=== PATIENT | male | born 1980 | race African-American/Black ===

== ENCOUNTER 2016-11-24 09:15 | Emergency (ER) | payer BC ==
[2016-11-24 09:21] VITALS: BP 110/70; PULSE 83; TEMP 98.5; BMI 30.4
--- NOTE | 2016-11-24 10:24 | PDOC ---
History of Present Illness - General Chief Complaint: Injury Stated Complaint: LEFT SIDE PAIN Time Seen by Provider: 11/24/16 10:19 History Source: Patient Exam Limitations: No Limitations - History of Present Illness Initial Comments: CHIEF COMPLAINT: 36 y/o afebrile male with no significant PMH c/o left rib pain. HISTORY OF PRESENT ILLNESS: The patient states he was wrestling with his brother last night and afterwards started feeling left anterior rib pain that is worse with movement and deep breaths. He states he feels something "moving" in his ribs. He has not taken anything for the pain. He denies trauma to the area, fall, f/c, n/v/d, cough, hemoptysis, SOB. Vital signs on arrival are within normal limits. REVIEW OF SYSTEMS: GENERAL/CONSTITUTIONAL: No fever/chills. No weakness. No weight change. HEAD, EYES, EARS, NOSE AND THROAT: No change in vision. No ear pain or discharge. No sore throat. CARDIOVASCULAR: +rib pain. No chest pain or shortness of breath. RESPIRATORY: No cough, wheezing, or hemoptysis. GASTROINTESTINAL: No abd pain, nausea, vomiting, diarrhea. GENITOURINARY: No dysuria, frequency, or change in urination. MUSCULOSKELETAL: No joint or muscle swelling or pain. No neck or back pain. SKIN: No rash or easy bruising. NEUROLOGIC: No headache, vertigo, loss of consciousness, or loss of sensation. PHYSICAL EXAM: GENERAL: The patient is awake, alert, and fully oriented, in no acute distress. He is well appearing, speaks in full sentences, but in discomfort with movement of upper body. HEAD: Normal with no signs of trauma. ENT: Pupils equal, round and reactive to light, extraocular movements intact, sclera anicteric, conjunctiva clear. Neck supple. LUNGS: Clear to auscultation bilaterally. Normal excursion. No respiratory distress or use of accessory muscles. CV: RRR, S1/S2, no MRG. Cap refill < 2 sec. CHEST WALL: Pain reproduced with palpation of ribs T7-T9, midclavicular line. No flail chest. No crepitus or obvious deformities. No ecchymosis or bruising to affected area. ABDOMEN: Soft, non-distended, non-tender even to deep palpation, no hepatomegaly or splenomegaly, no masses. EXTREMITIES: Normal range of motion, no edema. NEUROLOGICAL: Normal speech, normal gait. CN II-XII grossly intact. PSYCH: Normal mood, normal affect. SKIN: Warm, dry, normal turgor, no rashes or lesions noted. Past History - Past Medical History Allergies/Adverse Reactions: Allergies Allergy/AdvReac Type Severity Reaction Status Date / Time No Known Allergies Allergy Verified 11/24/16 09:16 Home Medications: Ambulatory Orders Hydrocodone/Ibuprofen [Vicoprofen 200-7.5 mg Tab] 1 tab PO Q6H #20 tablet Asthma: Yes - Psycho/Social/Smoking Cessation Hx Anxiety: No Suicidal Ideation: No Smoking Status: No Smoking History: Never smoked Have you smoked in the past 12 months: No Number of Cigarettes Smoked Daily: 3 Information on smoking cessation initiated: No Hx Alcohol Use: No Drug/Substance Use Hx: No Substance Use Type: None *Physical Exam - Vital Signs Last Vital Signs Temp Pulse Resp BP Pulse Ox 98.5 F 83 18 110/70 100 11/24/16 09:18 11/24/16 09:18 11/24/16 09:18 11/24/16 09:18 11/24/16 09:18 Medical Decision Making - Medical Decision Making A/P: 36 y/o afebrile male with left anterior rib pain. Plan is as follows: 1. RIb xray 2. PO ibuprofen Rib xray IMPRESSION: No acute chest or rib pathology. Patient most likely has costochondritis. Will discharge to home with RICE instructions and suggestion to take Ibuprofen every 8 hours for pain with food. Pt instructed to f/u with his doctor within 1 week and return to the ER with any worsening or concerning symptoms. The patient verbalizes understanding of all instructions, has no further questions and is awaiting discharge. *DC/Admit/Observation/Transfer Diagnosis at time of Disposition: Rib pain on left side, Costochondritis, acute - Discharge Dispostion Disposition: HOME Condition at time of disposition: Good - Patient Instructions Printed Discharge Instructions: DI for Costochondritis, How To Perform RICE ( Rest, Ice, Compress, Elevate) Additional Instructions: Discharge Instructions: -You pulled muscles in between your rib bones; this can be very painful and take a long time to heal -Take 800mg of over the counter Ibuprofen every 8 hours with food for pain -Follow RICE instructions for comfort. -Take a few deep breaths every hour to prevent lung issues -Follow up with your doctor within 1 week -Return to the ER with any worsening or concerning symptoms - Post Discharge Activity Work/School Note: Back to Work
[2016-11-24] MEDS ORDERED: IBUPROFEN 400 MG TABLET (FP) PO ONE (10:31)
== END 2016-11-24 11:37 | disposition home or self-care (01) ==
LOC: JERFT 09:15
DX: M94.0 Chondrocostal junction syndrome [Tietze] (principal); X50.0XXA Overexertion from strenuous movement or load, initial encounter; X50.9XXA Other and unspecified overexertion or strenuous movements or postures, initial encounter; Y93.83 Activity, rough housing and horseplay; Y92.038 Other place in apartment as the place of occurrence of the external cause; Y99.8 Other external cause status
CPT/HCPCS: 71101-TC; 99281-25